=== PATIENT | female | born 2000 | race Caucasian/White ===

== ENCOUNTER → 2021-08-12 | Outpatient (REF) | payer OTHER | LOC: M WUC 18:58 | PROVIDERS: ATTEND Physician Assistant Medical | DX: J06.9 Acute upper respiratory infection, unspecified (principal); Z20.828 Contact with and (suspected) exposure to other viral communicable diseases ==

== ENCOUNTER → 2021-09-17 | Outpatient (CLI) | payer OTHER | LOC: M RAD 13:55 | PROVIDERS: ATTEND Physician Assistant | DX: T83.32XA Displacement of intrauterine contraceptive device, initial encounter (principal) ==

== ENCOUNTER 2021-10-15 14:30 | Emergency (ER) | payer OTHER ==
[~2021-10-15] VITALS: Ht 152.4 cm; Wt 82.3 kg
[2021-10-15 14:30] VITALS: BP 107/63
[2021-10-15] MEDS ORDERED: TOPI25TA10 (15:04)
[2021-10-15] MEDS ORDERED: ACETAMINOPHEN 500 MG TAB PO ONE (18:15)
[2021-10-15] MEDS ORDERED: LIDOCAINE 5% (LIDODERM) PATCH TD ONE (18:15)
[2021-10-15] MEDS ORDERED: LIDO5DIS41 TD (19:27)
[2021-10-15] MEDS ORDERED: METH-1164 PO (19:27)
[2021-10-15] MEDS ORDERED: **NOTE PATIENT COMMENT** MISC XX SCH (21:00)
== END 2021-10-15 19:38 | disposition home or self-care (01) ==
LOC: M ED 14:30
DX: M54.50 Low back pain, unspecified (principal); J45.909 Unspecified asthma, uncomplicated; Z79.899 Other long term (current) drug therapy; Z87.828 Personal history of other (healed) physical injury and trauma; Z87.19 Personal history of other diseases of the digestive system; Z86.69 Personal history of other diseases of the nervous system and sense organs; Z90.49 Acquired absence of other specified parts of digestive tract; Z98.890 Other specified postprocedural states

== ENCOUNTER 2022-06-17 18:10 | Emergency (ER) | payer OTHER ==
[~2022-06-17] VITALS: Ht 152.4 cm; Wt 82.8 kg
[~2022-06-17 18:10] MED LIST: LIDO5DIS41 TD; METH-1164 PO; TOPI25TA10
[2022-06-17] MEDS ORDERED: RIZA10TA2 (18:48)
[2022-06-17] MEDS ORDERED: TOPI100T9 (18:48)
[2022-06-18 01:08] VITALS: BP 115/80
== END 2022-06-18 01:51 | disposition left against medical advice (07) ==
LOC: M ED 18:10
DX: M25.511 Pain in right shoulder (principal); Z53.21 Procedure and treatment not carried out due to patient leaving prior to being seen by health care provider

== ENCOUNTER → 2023-01-31 | Outpatient (CLI) | payer OTHER ==
[~2023-01-31] MED LIST changes: +RIZA10TA2; +TOPI100T9
[2023-01-31 18:51] LABS: HEMOGLOBIN A1c 4.7 % (4.0-6.0)
== END ==
LOC: M PLALAB 14:11
PROVIDERS: ATTEND Nurse Practitioner Family
DX: N92.6 Irregular menstruation, unspecified (principal)

== ENCOUNTER → 2023-03-07 | Outpatient (CLI) | payer OTHER | LOC: M WHC 11:20 | PROVIDERS: ATTEND Nurse Practitioner Family | DX: E28.2 Polycystic ovarian syndrome (principal); Z97.5 Presence of (intrauterine) contraceptive device ==

== ENCOUNTER → 2023-04-02 | Outpatient (CLI) | payer OTHER ==
[2023-04-02 08:10] LABS: BASO # 0.1 10^3/uL (0.0-0.2); BASO % 0.6 % (0.0-1.0); EOS # 0.1 10^3/uL (0.0-0.5); EOS % 0.7 % (0.0-3.0); HEMATOCRIT 40.7 % (36.0-47.0); HEMOGLOBIN 13.4 g/dl (12.0-15.5); LYMPH # 2.6 10^3/uL (1.5-5.0); MEAN CORPUSCULAR HEMOGLOBIN 27.6 pg (27.0-33.0); MEAN CORPUSCULAR HGB CONC 32.9 g/dl (32.0-36.5); MEAN CORPUSCULAR VOLUME 83.7 fl (80.0-96.0); MONO # 0.5 10^3/uL (0.0-0.8); NEUTROPHILS # 5.4 10^3/uL (1.5-8.5); NEUTROPHILS % 62.2 % (36.0-66.0); PLATELET COUNT, AUTOMATED 253 10^3/uL (150-450); RED BLOOD COUNT 4.86 10^6/uL (4.00-5.40); WHITE BLOOD COUNT 8.7 10^3/uL (4.0-10.0)
[2023-04-02 08:36] LABS: ALKALINE PHOSPHATASE 80 U/L (46-116); ALT/SGPT 29 U/L (7.0-40); AST/SGOT 20 U/L (<34); BILIRUBIN,TOTAL 0.5 MG/DL (0.3-1.2); BLOOD UREA NITROGEN 13 MG/DL (9-23); CALCIUM LEVEL 9.3 MG/DL (8.5-10.1); CARBON DIOXIDE LEVEL 27 MMOL/L (20-31); CHLORIDE LEVEL 107 MMOL/L (98-107); CREATININE FOR GFR 0.64 MG/DL (0.55-1.30); GLOMERULAR FILTRATION RATE > 60.0 (>60); GLUCOSE, FASTING 95 MG/DL (60-100); POTASSIUM SERUM 3.7 MMOL/L (3.5-5.1); SODIUM LEVEL 139 MMOL/L (136-145); TOTAL PROTEIN 7.2 G/DL (5.7-8.2)
== END ==
LOC: M LAB 07:49
PROVIDERS: ATTEND Psychiatry & Neurology Neurology
DX: R51.9 Headache, unspecified (principal)

== ENCOUNTER → 2023-04-03 | Outpatient (CLI) | payer OTHER ==
[2023-04-03 19:08] LABS: THYROID STIMULATING HORMONE 0.794 uIU/ML (0.55-4.78)
[2023-04-03 19:09] LABS: FREE T4 1.03 NG/DL (0.89-1.76)
== END ==
LOC: M PLALAB 15:03
PROVIDERS: ATTEND Nurse Practitioner Family
DX: R53.83 Other fatigue (principal)